=== PATIENT | male | born 1960 | race African-American/Black ===

== ENCOUNTER 2016-12-28 14:58 | Inpatient (IN) | payer OTHER ==
[2016-12-28 16:28] VITALS: BMI 22.8
--- NOTE | 2016-12-28 19:16 | HP ---
COWS - Scale Resting Pulse: 1= [place] 81-100 Sweatin= Chills/Flushing Restless Observation: 1= Difficult to Sit Still Pupil Size: 1= Pupils >than Normal Bone or Joint Aches: 1= Mild Discomfort Runny Nose/ Eye Tearin= Runny Nose/Eyes GI Upset > 30mins: 2= Nausea/Diarrhea Tremor Observation: 2= Slight Tremor Visible Yawning Observation: 1= 1-2x During Session Anxiety or Irritability: 2=Irritable/Anxious Goose Flesh Skin: 3=Piloerection COWS Score: 17 Admission ROS S - [facility] Chief Complaint: withdrawal sx Allergies/Adverse Reactions: Allergies Allergy/AdvReac Type Severity Reaction Status Date / Time No Known Allergies Allergy Verified 12/28/16 17:33 History of Present Illness: 55 years old male with long history of opiate nicotine dependence has gerd and weight loss denies mental illness is admitted to detox Exam Limitations: No Limitations - Ebola screening Have you traveled outside of the country in the last 21 days: No Have you had contact with anyone from an Ebola affected area: No Have you been sick,other than usual withdrawal symptoms: No Do you have a fever: No - Review of Systems Constitutional: Chills, Loss of Appetite, Changes in sleep, Unintentional Wgt. Loss, Unexplained wgt Loss EENT: reports: Other (right eye herpes inflammation treated at [facility] x 7 days) Respiratory: reports: No Symptoms reported Cardiac: reports: No Symptoms Reported GI: reports: Nausea, Poor Appetite, Poor Fluid Intake, Indigestion, Abdominal cramping : reports: No Symptoms Reported Musculoskeletal: reports: Muscle Pain (right upper eye lid) Integumentary: reports: Erythema (right upper eye lid) Neuro: reports: Tremors Endocrine: reports: No Symptoms Reported Hematology: reports: No Symptoms Reported Psychiatric: reports: Judgement Intact, Mood/Affect Appropiate, Orientated x3 Other Systems: Reviewed and Negative Patient History - Patient Medical History Hx Anemia: No Hx Asthma: No Hx Chronic Obstructive Pulmonary Disease (COPD): No Hx Cancer: No Hx Cardiac Disorders: No Hx Congestive Heart Failure: No Hx Hypertension: No Hx Hypercholesterolemia: No Hx Pacemaker: No HX Cerebrovascular Accident: No Hx Seizures: No Hx Dementia: No Hx Diabetes: No Hx Gastrointestinal Disorders: No Hx Liver Disease: No Hx Genitourinary Disorders: No Hx Sexually Transmitted Disorders: No Hx Renal Disease (ESRD): No Hx Thyroid Disease: No Hx Human Immunodeficiency Virus (HIV): No Hx Hepatitis C: No Hx Depression: No Hx Suicide Attempt: No Hx Bipolar Disorder: No Hx Schizophrenia: No - Patient Surgical History Past Surgical History: No Hx Neurologic Surgery: No Hx Cataract Extraction: No Hx Cardiac Surgery: No Hx Lung Surgery: No Hx Breast Surgery: No Hx Breast Biopsy: No Hx Abdominal Surgery: No Hx Appendectomy: No Hx Cholecystectomy: No Hx Genitourinary Surgery: No Hx Orthopedic Surgery: No Anesthesia Reaction: No - PPD History Previous Implant?: Yes Documented Results: Negative w/o proof Implanted On Prior [facility] Admission?: No PPD to be Administered?: Yes - Smoking Cessation Smoking history: Current every day smoker Have you smoked in the past 12 months: Yes Aproximately how many cigarettes per day: 3 Cigars Per Day: 0 Hx Chewing Tobacco Use: No Initiated information on smoking cessation: Yes 'Breaking Loose' booklet given: 12/21/16 - Substance & Tx. History Hx Alcohol Use: No Hx Substance Use: Yes Substance Use Type: Opiates Hx Substance Use Treatment: Yes - Substances Abused Heroin Route: Inhalation Frequency: Daily Amount used: 6 BAGS Age of first use: 33 Date of Last Use: 12/27/16 Family Disease History - Family Disease History Family Disease History: Diabetes: Mother, Other: Father (no contact), Sister ( no contact) Admission Physical Exam BHS - Vital Signs Vital Signs: Vital Signs - 24 hr 12/28/16 16:26 Temperature 96.1 F L Pulse Rate 91 H Respiratory 20 Rate Blood Pressure 131/65 - Physical General Appearance: Yes: Appropriately Dressed, Moderate Distress, Thin, Tremorous, Irritable, Sweating, Anxious HEENTM: Yes: Hearing grossly Normal, Normal ENT Inspection, Normocephalic, Normal Voice Respiratory: Yes: Chest Non-Tender, Lungs Clear, Normal Breath Sounds, No Respiratory Distress, No Accessory Muscle Use Neck: Yes: Supple, Trachea in good position Breast: Yes: Breasts Symetrical Cardiology: Yes: Regular Rhythm, Regular Rate, S1, S2 Abdominal: Yes: Non Tender, Soft Genitourinary: Yes: Within Normal Limits Back: Yes: Normal Inspection Musculoskeletal: Yes: full range of Motion, Gait Steady, Back pain, Muscle Pain Extremities: Yes: Normal Inspection (refuses legs + arms been examine), Normal Range of Motion, Non-Tender, Tremors Neurological: Yes: Fully Oriented, Alert, Motor Strength 5/5, Normal Mood/Affect , Normal Response Integumentary: Yes: Warm Lymphatic: Yes: Within Normal Limits - Diagnostic (1) Opioid dependence with withdrawal Current Visit: Yes Status: Acute (2) GERD (gastroesophageal reflux disease) Current Visit: Yes Status: Acute Qualifiers: Esophagitis presence: without esophagitis Qualified Code(s): K21.9 - Gastro-esophageal reflux disease without esophagitis (3) Weight loss Current Visit: Yes Status: Acute (4) Nicotine dependence Current Visit: Yes Status: Acute Qualifiers: Nicotine product type: cigarettes Substance use status: in withdrawal Qualified Code(s): F17.213 - Nicotine dependence, cigarettes, with withdrawal (5) Herpes simplex conjunctivitis, right eye Current Visit: Yes Status: Acute Comment: right eye herpes treated at [facility] x 7 days, discharged 12/22/16, [facility] Level of Care: Medically Managed Detox Regimen/Protocol: Methadone [facility] Breath Alcohol Content Breath Alcohol Content: 0 Urine Drug Screen - Results Drug Screen Negative: No Urine Drug Screen Results: THC-Marijuana, CARMELINA-Cocaine, OPI-Opiates, MTD- Methadone, OXY-Oxycodone
[2016-12-28] MEDS ORDERED: IBUPROFEN 400 MG TABLET (FP) PO PRN (19:24)
[2016-12-28] MEDS ORDERED: guaiFENesin/D-METHORPHAN HB 10 ML UNIT-DOSE CUPS PO PRN (19:24)
[2016-12-28] MEDS ORDERED: MENTHOL/PHENOL 1 EACH UD MM PRN (19:24)
[2016-12-28] MEDS ORDERED: ACETAMINOPHEN 325 MG TABLET (FP) PO PRN (19:24)
[2016-12-28] MEDS ORDERED: MAGNESIUM CITRATE 300 ML BOTTLE PO PRN (19:24)
[2016-12-28] MEDS ORDERED: LOPERAMIDE HCL 2 MG CAPSULE PO PRN (19:24)
[2016-12-28] MEDS ORDERED: METHADONE HCL 10 MG TABLET (FOR DETOX USE ONLY) PO ONE ×2 (19:24→23:00)
[2016-12-28] MEDS ORDERED: NICOTINE POLACRILEX 2 MG GUM BC PRN (19:24)
[2016-12-28] MEDS ORDERED: MAGNESIUM HYDROX 2400MG/30ML ORAL SUSPENSION 30 ML CUP PO PRN (19:24)
[2016-12-28] MEDS ORDERED: MAG HYDROX/AL HYDROX/SIMETH 30 ML UNIT-DOSE CUP PO PRN (19:24)
[2016-12-28] MEDS ORDERED: P-EPHED 60MG/TRIPROLIDI 2.5MG TABLET PO PRN (19:24)
[2016-12-28] MEDS ORDERED: ERYTHROMYCIN 0.5% OPHTHALMIC OINTMENT 3.5 GM TUBE OD SCH ×2 (19:30→19:33)
[2016-12-28] MEDS ORDERED: valACYclovir HCL 1000 MG TABLET PO SCH (19:30)
[2016-12-28] MEDS: ERYTHROMYCIN 0.5% OD SCH ×2 (21:56→22:51)
[2016-12-28] MEDS: OPTH OD SCH ×2 (21:56→22:51)
[2016-12-28] MEDS ORDERED: ARTIFICIAL TEARS (POLYVINYL ALCOHOL 1.4%) OPTH DROPS OU SCH ×2 (22:00)
[2016-12-28] MEDS ORDERED: valACYclovir HCL 500 MG TABLET (FP) PO SCH (22:00)
[2016-12-28 22:38] LABS: URINE APPEARANCE CLEAR; URINE BILIRUBIN NEGATIVE (NEGATIVE); URINE BLOOD NEGATIVE (NEGATIVE); URINE COLOR YELLOW; URINE GLUCOSE (UA) NEGATIVE (NEGATIVE); URINE KETONE NEGATIVE (NEGATIVE); URINE LEUK ESTERASE NEGATIVE (NEGATIVE); URINE NITRITE NEGATIVE (NEGATIVE); URINE PROTEIN NEGATIVE (NEGATIVE); URINE UROBILINOGEN NEGATIVE E.U./dl (0.2-1.0)
[2016-12-28] MEDS: VALTREX 1000 MG PO SCH (22:49)
[2016-12-28] MEDS: [UNRECOGNIZED DRUG - OTHER] OU SCH (22:49)
[2016-12-28] MEDS: THIAMINE HCL 100 MG TABLET (FP) PO SCH (22:50)
[2016-12-28] MEDS: RANITIDINE HCL 150 MG TABLET (FP) PO SCH (22:50)
[2016-12-28] MEDS: diphenhydrAMINE HCL 50 MG CAPSULE PO PRN (22:51)
[2016-12-29] MEDS: OPTH OD SCH ×6 (04:16→23:10)
[2016-12-29] MEDS: ERYTHROMYCIN 0.5% OD SCH ×6 (04:16→23:10)
[2016-12-29] MEDS: diazePAM 5 MG TABLET PO PRN ×2 (05:50→10:42)
[2016-12-29] MEDS: VALTREX 1000 MG PO SCH ×3 (05:51→23:09)
[2016-12-29] MEDS: [UNRECOGNIZED DRUG - OTHER] OU SCH ×3 (05:51→23:00)
[2016-12-29] MEDS ORDERED: METHADONE HCL 10 MG TABLET (FOR DETOX USE ONLY) PO ONE (10:00)
[2016-12-29] MEDS ORDERED: DOXYCYCLINE HYCLATE 100 MG CAPSULE PO SCH (10:00)
[2016-12-29 10:29] LABS: MCH 31.6 pg (25.7-33.7); MCHC 33.5 g/dl (32.0-35.9); MEAN CELL VOLUME 94.3 fl (80-96); MEAN PLT VOLUME 6.8 fl (7.5-11.1); PLATELET COUNT 397 K/MM3 (134-434); WHITE BLOOD COUNT 9.5 K/mm3 (4.0-10.0)
[2016-12-29] MEDS: RANITIDINE HCL 150 MG TABLET (FP) PO SCH ×2 (10:41→23:00)
[2016-12-29] MEDS: PRENATAL VITAMINS W/ FOLIC ACID TABLET (FP) PO SCH (10:42)
[2016-12-29] MEDS: DOXYCYCLINE 100 MG PO SCH ×2 (10:43→17:35)
[2016-12-29] MEDS: NICOTINE 14 MG/24 HOURS TOPICAL PATCH TD SCH (10:43)
[2016-12-29 11:00] LABS: ALBUMIN 3.1 g/dl (3.4-5.0); ALK PHOS 54 U/L (45-117); ANION GAP 9 (8-16); BILIRUBIN,TOTAL 0.3 mg/dL (0.2-1.0); CALCIUM 8.1 mg/dL (8.5-10.1); CO2 28 mmol/L (21-32); GLUCOSE,RANDOM 111 mg/dL (74-106); SGOT/AST 17 U/L (15-37); SGPT/ALT 27 U/L (12-78); TOT PROT 6.9 g/dl (6.4-8.2)
--- NOTE | 2016-12-29 13:23 | EKG ---
Test Reason : Blood Pressure : / mmHG Vent. Rate : 071 BPM Atrial Rate : 071 BPM P-R Int : 156 ms QRS Dur : 094 ms QT Int : 406 ms P-R-T Axes : 061 -29 -04 degrees QTc Int : 441 ms NORMAL SINUS RHYTHM INCOMPLETE RIGHT BUNDLE BRANCH BLOCK SEPTAL INFARCT , AGE UNDETERMINED ABNORMAL ECG NO PREVIOUS ECGS AVAILABLE Confirmed by CHRISTIE MENDEZ MD ([id number]) on 12/29/2016 1:23:14 PM Referred By: Noah Blas Confirmed By:CHRISTIE MENDEZ MD
--- NOTE | 2016-12-29 15:18 | PN ---
S COWS - Scale Resting Pulse: 1= [place] 81-100 Sweatin= Chills/Flushing Restless Observation: 1= Difficult to Sit Still Pupil Size: 0= Normal to Room Light Bone or Joint Aches: 2= Severe Diffuse Aches Runny Nose/ Eye Tearin= Nasal Congestion GI Upset > 30mins: 0= None Tremor Observation of Outstretched Hands: 2= Slight Tremor Visible Yawning Observation: 1= 1-2x During Session Anxiety or Irritability: 2=Irritable/Anxious Goose Flesh Skin: 3=Piloerection COWS Score: 14 BHS Progress Note (SOAP) Subjective: Tremors, Chills, Sweating, Body Aches. Objective: PT. A & O X 3, OBSERVED AMBULATING ON UNIT. 12/29/16 15:16 Vital Signs Temperature 97 F L 12/29/16 14:28 Pulse Rate 85 12/29/16 14:28 Respiratory Rate 20 12/29/16 14:28 Blood Pressure 105/69 12/29/16 14:28 O2 Sat by Pulse Oximetry (%) Laboratory Last Values WBC 9.5 K/mm3 (4.0-10.0) 12/29/16 07:15 RBC 3.74 M/mm3 (4.00-5.60) L 12/29/16 07:15 Hgb 11.8 GM/dL (11.7-16.9) 12/29/16 07:15 Hct 35.3 % (35.4-49) L 12/29/16 07:15 MCV 94.3 fl (80-96) 12/29/16 07:15 MCHC 33.5 g/dl (32.0-35.9) 12/29/16 07:15 RDW 13.0 % (11.9-15.9) 12/29/16 07:15 Plt Count 397 K/MM3 (134-434) 12/29/16 07:15 MPV 6.8 fl (7.5-11.1) L 12/29/16 07:15 Sodium 142 mmol/L (136-145) 12/29/16 07:15 Potassium 4.0 mmol/L (3.5-5.1) 12/29/16 07:15 Chloride 105 mmol/L (98-107) 12/29/16 07:15 Carbon Dioxide 28 mmol/L (21-32) 12/29/16 07:15 Anion Gap 9 (8-16) 12/29/16 07:15 BUN 10 mg/dL (7-18) 12/29/16 07:15 Creatinine 1.0 mg/dL (0.7-1.3) 12/29/16 07:15 Creat Clearance w eGFR > 60 (>60) 12/29/16 07:15 Random Glucose 111 mg/dL (74-106) H 12/29/16 07:15 Calcium 8.1 mg/dL (8.5-10.1) L 12/29/16 07:15 Total Bilirubin 0.3 mg/dL (0.2-1.0) 12/29/16 07:15 AST 17 U/L (15-37) 12/29/16 07:15 ALT 27 U/L (12-78) 12/29/16 07:15 Alkaline Phosphatase 54 U/L (45-117) 12/29/16 07:15 Total Protein 6.9 g/dl (6.4-8.2) 12/29/16 07:15 Albumin 3.1 g/dl (3.4-5.0) L 12/29/16 07:15 Urine Color Yellow 12/28/16 22:00 Urine Appearance Clear 12/28/16 22:00 Urine pH 5.0 (5.0-8.0) 12/28/16 22:00 Ur Specific [place] 1.018 (1.001-1.035) 12/28/16 22:00 Urine Protein Negative (NEGATIVE) 12/28/16 22:00 Urine Glucose (UA) Negative (NEGATIVE) 12/28/16 22:00 Urine Ketones Negative (NEGATIVE) 12/28/16 22:00 Urine Blood Negative (NEGATIVE) 12/28/16 22:00 Urine Nitrite Negative (NEGATIVE) 12/28/16 22:00 Urine Bilirubin Negative (NEGATIVE) 12/28/16 22:00 Urine Urobilinogen Negative E.U./dl (0.2-1.0) 12/28/16 22:00 Ur Leukocyte Esterase Negative (NEGATIVE) 12/28/16 22:00 RPR Titer Nonreactive (NONREACTIVE) 12/29/16 07:15 LABS NOTED. 12/29/16 15:18 Assessment: 12/29/16 15:17 WITHDRAWAL SYMPTOMS. Plan: CONTINUE DETOX.
--- NOTE | 2016-12-29 17:45 | CONSULT ---
[facility] Psychiatric Consult - Data Date of interview: 12/29/16 Admission source: [facility] Identifying data: First aadmission to [facility] for this 55 y/o AA male seeking detox treatment on for heroin,cocaine (crack) and marijuana dependence.Patient is single,a father of six,domiciled,disabled and supported on SSI benefits. Substance Abuse History: - Smoking Cessation. Smoking history: Current every day smoker. Have you smoked in the past 12 months: Yes. Aproximately how many cigarettes per day: 3. Cigars Per Day: 0. Hx Chewing Tobacco Use: No. Initiated information on smoking cessation: Yes. 'Breaking Loose' booklet given : 12/21/16. - Substance & Tx. History. Hx Alcohol Use: No. Hx Substance Use: Yes. Substance Use Type: Opiates. Hx Substance Use Treatment: Yes. - Substances Abused. Heroin. Route: Inhalation. Frequency: Daily. Amount used: 6 BAGS. Age of first use: 33. Date of Last Use: 12/27/16. Confirmed by the patient in this interview. Medical History: Decreased hearing (bilateral),GERD and recent treatment for ophtalmic herpes. Psychiatric History: No reported history of psychiatric hospitalizations.Patient reports brief contact with a private psychiatrist to address anxiety.he was prescribed seroquel,xanax and klonopin.No longer in treatment.Mr Peralta reports that he stopped seeing the psychiatrist four months ago.Off medications since (own decision).Patient indicates that he is not interested in taking " psychiatric " medications.No history of suicide attempts. Physical/Sexual Abuse/Trauma History: Patient denies. Additional Comment: Urine Drug Screen Results: THC-Marijuana, CARMELINA-Cocaine, OPI- Opiates, MTD-Methadone, OXY-Oxycodone.Noted. Mental Status Exam - Mental Status Exam Alert and Oriented to: Time, Place, Person Cognitive Function: Good Patient Appearance: Well Groomed Mood: Hopeful, Euthymic Affect: Appropriate, Normal Range Patient Behavior: Fatigued, Appropriate, Cooperative Speech Pattern: Clear Voice Loudness: Normal Thought Process: Goal Oriented Hallucinations: Denies Suicidal Ideation: Denies Homicidal Ideation: Denies Insight/Judgement: Poor Sleep: Well Appetite: Good Muscle strength/Tone: Normal Gait/Station: Normal Psychiatric Findings - Problem List ([place] 1, 2,3) (1) Nicotine dependence Current Visit: Yes Status: Acute Qualifiers: Nicotine product type: cigarettes Substance use status: in withdrawal Qualified Code(s): F17.213 - Nicotine dependence, cigarettes, with withdrawal (2) Opioid dependence with withdrawal Current Visit: Yes Status: Acute (3) Cocaine dependence Current Visit: Yes Status: Acute (4) Marijuana dependence Current Visit: Yes Status: Acute (5) GERD (gastroesophageal reflux disease) Current Visit: Yes Status: Chronic Qualifiers: Esophagitis presence: without esophagitis Qualified Code(s): K21.9 - Gastro-esophageal reflux disease without esophagitis (6) Herpes simplex conjunctivitis, right eye Current Visit: Yes Status: Acute Comment: right eye herpes treated at [facility] x 7 days, discharged 12/22/16, - Initial Treatment Plan Initial Treatment Plan: Psychoeducation.Detoxification.Observation.
[2016-12-29] MEDS: THIAMINE HCL 100 MG TABLET (FP) PO SCH (23:00)
[2016-12-29] MEDS: diphenhydrAMINE HCL 50 MG CAPSULE PO PRN (23:11)
[2016-12-30] MEDS: ERYTHROMYCIN 0.5% OD SCH ×6 (03:30→22:53)
[2016-12-30] MEDS: OPTH OD SCH ×6 (03:30→22:53)
[2016-12-30] MEDS: VALTREX 1000 MG PO SCH ×3 (05:56→22:36)
[2016-12-30] MEDS: [UNRECOGNIZED DRUG - OTHER] OU SCH ×3 (05:57→22:39)
[2016-12-30] MEDS: diazePAM 5 MG TABLET PO PRN ×2 (05:57→22:34)
[2016-12-30] MEDS ORDERED: METHADONE HCL 5 MG TABLET (FOR DETOX USE ONLY) PO ONE (10:00)
[2016-12-30] MEDS: PRENATAL VITAMINS W/ FOLIC ACID TABLET (FP) PO SCH (11:08)
[2016-12-30] MEDS: DOXYCYCLINE 100 MG PO SCH ×2 (11:09→17:30)
[2016-12-30] MEDS: NICOTINE 14 MG/24 HOURS TOPICAL PATCH TD SCH (11:10)
[2016-12-30] MEDS: RANITIDINE HCL 150 MG TABLET (FP) PO SCH ×2 (11:12→22:35)
--- NOTE | 2016-12-30 13:13 | PN ---
BHS COWS - Scale Resting Pulse: 1= [place] 81-100 Sweatin=Flushed/Facial Moisture Restless Observation: 1= Difficult to Sit Still Pupil Size: 0= Normal to Room Light Bone or Joint Aches: 2= Severe Diffuse Aches Runny Nose/ Eye Tearin= Runny Nose/Eyes GI Upset > 30mins: 2= Nausea/Diarrhea Tremor Observation of Outstretched Hands: 2= Slight Tremor Visible Yawning Observation: 1= 1-2x During Session Anxiety or Irritability: 2=Irritable/Anxious Goose Flesh Skin: 0=Smooth Skin COWS Score: 15 BHS Progress Note (SOAP) Subjective: Anxiety,sweating,muscle aches/spasm,interrupted sleep,restless Objective: 12/30/16 13:12 Vital Signs - 8 hr 12/30/16 12/30/16 06:24 11:47 Temperature 96 F L 97.7 F Pulse Rate 74 98 H Respiratory 16 19 Rate Blood Pressure 109/68 120/73 Laboratory Last Values WBC 9.5 K/mm3 (4.0-10.0) 12/29/16 07:15 RBC 3.74 M/mm3 (4.00-5.60) L 12/29/16 07:15 Hgb 11.8 GM/dL (11.7-16.9) 12/29/16 07:15 Hct 35.3 % (35.4-49) L 12/29/16 07:15 MCV 94.3 fl (80-96) 12/29/16 07:15 MCHC 33.5 g/dl (32.0-35.9) 12/29/16 07:15 RDW 13.0 % (11.9-15.9) 12/29/16 07:15 Plt Count 397 K/MM3 (134-434) 12/29/16 07:15 MPV 6.8 fl (7.5-11.1) L 12/29/16 07:15 Sodium 142 mmol/L (136-145) 12/29/16 07:15 Potassium 4.0 mmol/L (3.5-5.1) 12/29/16 07:15 Chloride 105 mmol/L (98-107) 12/29/16 07:15 Carbon Dioxide 28 mmol/L (21-32) 12/29/16 07:15 Anion Gap 9 (8-16) 12/29/16 07:15 BUN 10 mg/dL (7-18) 12/29/16 07:15 Creatinine 1.0 mg/dL (0.7-1.3) 12/29/16 07:15 Creat Clearance w eGFR > 60 (>60) 12/29/16 07:15 Random Glucose 111 mg/dL (74-106) H 12/29/16 07:15 Calcium 8.1 mg/dL (8.5-10.1) L 12/29/16 07:15 Total Bilirubin 0.3 mg/dL (0.2-1.0) 12/29/16 07:15 AST 17 U/L (15-37) 12/29/16 07:15 ALT 27 U/L (12-78) 12/29/16 07:15 Alkaline Phosphatase 54 U/L (45-117) 12/29/16 07:15 Total Protein 6.9 g/dl (6.4-8.2) 12/29/16 07:15 Albumin 3.1 g/dl (3.4-5.0) L 12/29/16 07:15 Urine Color Yellow 12/28/16 22:00 Urine Appearance Clear 12/28/16 22:00 Urine pH 5.0 (5.0-8.0) 12/28/16 22:00 Ur Specific [place] 1.018 (1.001-1.035) 12/28/16 22:00 Urine Protein Negative (NEGATIVE) 12/28/16 22:00 Urine Glucose (UA) Negative (NEGATIVE) 12/28/16 22:00 Urine Ketones Negative (NEGATIVE) 12/28/16 22:00 Urine Blood Negative (NEGATIVE) 12/28/16 22:00 Urine Nitrite Negative (NEGATIVE) 12/28/16 22:00 Urine Bilirubin Negative (NEGATIVE) 12/28/16 22:00 Urine Urobilinogen Negative E.U./dl (0.2-1.0) 12/28/16 22:00 Ur Leukocyte Esterase Negative (NEGATIVE) 12/28/16 22:00 RPR Titer Nonreactive (NONREACTIVE) 12/29/16 07:15 labs noted Assessment: 12/30/16 13:12 withdrawal sx. Plan: continue detox
[2016-12-30] MEDS: THIAMINE HCL 100 MG TABLET (FP) PO SCH (22:34)
[2016-12-30] MEDS: diphenhydrAMINE HCL 50 MG CAPSULE PO PRN (22:37)
[2016-12-31] MEDS: OPTH OD SCH ×6 (03:30→22:43)
[2016-12-31] MEDS: ERYTHROMYCIN 0.5% OD SCH ×6 (03:30→22:43)
[2016-12-31] MEDS: VALTREX 1000 MG PO SCH ×3 (06:13→22:25)
[2016-12-31] MEDS: [UNRECOGNIZED DRUG - OTHER] OU SCH ×3 (06:13→22:25)
[2016-12-31] MEDS: diazePAM 5 MG TABLET PO PRN ×3 (06:14→17:51)
[2016-12-31] MEDS ORDERED: METHADONE HCL 5 MG TABLET (FOR DETOX USE ONLY) PO ONE (10:00)
[2016-12-31] MEDS: RANITIDINE HCL 150 MG TABLET (FP) PO SCH ×2 (10:47→22:25)
[2016-12-31] MEDS: PRENATAL VITAMINS W/ FOLIC ACID TABLET (FP) PO SCH (10:48)
[2016-12-31] MEDS: DOXYCYCLINE 100 MG PO SCH ×2 (10:48→17:50)
[2016-12-31] MEDS: NICOTINE 14 MG/24 HOURS TOPICAL PATCH TD SCH (11:18)
--- NOTE | 2016-12-31 14:53 | PN ---
BHS Progress Note (SOAP) Subjective: Fatigue, H/A, Chills, Sweating, Tremors. Objective: PT. A & O X 1, (DISORIENTED ABOUT DAY / DATE AND ABOUT LOCATION). 12/31/16 14:51 Vital Signs Temperature 97.3 F L 12/31/16 12:53 Pulse Rate 95 H 12/31/16 12:53 Respiratory Rate 18 12/31/16 12:53 Blood Pressure 108/68 12/31/16 12:53 O2 Sat by Pulse Oximetry (%) Laboratory Last Values WBC 9.5 K/mm3 (4.0-10.0) 12/29/16 07:15 RBC 3.74 M/mm3 (4.00-5.60) L 12/29/16 07:15 Hgb 11.8 GM/dL (11.7-16.9) 12/29/16 07:15 Hct 35.3 % (35.4-49) L 12/29/16 07:15 MCV 94.3 fl (80-96) 12/29/16 07:15 MCHC 33.5 g/dl (32.0-35.9) 12/29/16 07:15 RDW 13.0 % (11.9-15.9) 12/29/16 07:15 Plt Count 397 K/MM3 (134-434) 12/29/16 07:15 MPV 6.8 fl (7.5-11.1) L 12/29/16 07:15 Sodium 142 mmol/L (136-145) 12/29/16 07:15 Potassium 4.0 mmol/L (3.5-5.1) 12/29/16 07:15 Chloride 105 mmol/L (98-107) 12/29/16 07:15 Carbon Dioxide 28 mmol/L (21-32) 12/29/16 07:15 Anion Gap 9 (8-16) 12/29/16 07:15 BUN 10 mg/dL (7-18) 12/29/16 07:15 Creatinine 1.0 mg/dL (0.7-1.3) 12/29/16 07:15 Creat Clearance w eGFR > 60 (>60) 12/29/16 07:15 Random Glucose 111 mg/dL (74-106) H 12/29/16 07:15 Calcium 8.1 mg/dL (8.5-10.1) L 12/29/16 07:15 Total Bilirubin 0.3 mg/dL (0.2-1.0) 12/29/16 07:15 AST 17 U/L (15-37) 12/29/16 07:15 ALT 27 U/L (12-78) 12/29/16 07:15 Alkaline Phosphatase 54 U/L (45-117) 12/29/16 07:15 Total Protein 6.9 g/dl (6.4-8.2) 12/29/16 07:15 Albumin 3.1 g/dl (3.4-5.0) L 12/29/16 07:15 Urine Color Yellow 12/28/16 22:00 Urine Appearance Clear 12/28/16 22:00 Urine pH 5.0 (5.0-8.0) 12/28/16 22:00 Ur Specific [place] 1.018 (1.001-1.035) 12/28/16 22:00 Urine Protein Negative (NEGATIVE) 12/28/16 22:00 Urine Glucose (UA) Negative (NEGATIVE) 12/28/16 22:00 Urine Ketones Negative (NEGATIVE) 12/28/16 22:00 Urine Blood Negative (NEGATIVE) 12/28/16 22:00 Urine Nitrite Negative (NEGATIVE) 12/28/16 22:00 Urine Bilirubin Negative (NEGATIVE) 12/28/16 22:00 Urine Urobilinogen Negative E.U./dl (0.2-1.0) 12/28/16 22:00 Ur Leukocyte Esterase Negative (NEGATIVE) 12/28/16 22:00 RPR Titer Nonreactive (NONREACTIVE) 12/29/16 07:15 LABS NOTED. Assessment: 12/31/16 14:52 WITHDRAWAL SYMPTOMS. Plan: CONTINUE DETOX.
[2016-12-31] MEDS: THIAMINE HCL 100 MG TABLET (FP) PO SCH (22:25)
[2017-01-01] MEDS: ERYTHROMYCIN 0.5% OD SCH ×5 (07:39→22:40)
[2017-01-01] MEDS: [UNRECOGNIZED DRUG - OTHER] OU SCH ×3 (07:39→22:09)
[2017-01-01] MEDS: VALTREX 1000 MG PO SCH ×3 (07:39→22:10)
[2017-01-01] MEDS: OPTH OD SCH ×5 (07:39→22:40)
[2017-01-01] MEDS ORDERED: METHADONE HCL 10 MG TABLET (FOR DETOX USE ONLY) PO ONE (10:00)
--- NOTE | 2017-01-01 10:47 | PN ---
BHS Progress Note (SOAP) Subjective: Sweating,interrupted sleep,restless Objective: 01/01/17 10:46 Vital Signs - 8 hr 01/01/17 01/01/17 03:30 06:36 Temperature 95.3 F L Pulse Rate 85 Respiratory 18 16 Rate Blood Pressure 111/71 Laboratory Tests 12/28/16 12/29/16 12/29/16 22:00 07:15 07:15 WBC 9.5 RBC 3.74 L Hgb 11.8 Hct 35.3 L MCV 94.3 MCHC 33.5 RDW 13.0 Plt Count 397 MPV 6.8 L Sodium 142 Potassium 4.0 Chloride 105 Carbon Dioxide 28 Anion Gap 9 BUN 10 Creatinine 1.0 Creat Clearance w eGFR > 60 Random Glucose 111 H Calcium 8.1 L Total Bilirubin 0.3 AST 17 ALT 27 Alkaline Phosphatase 54 Total Protein 6.9 Albumin 3.1 L Urine Color Yellow Urine Appearance Clear Urine pH 5.0 Ur Specific [place] 1.018 Urine Protein Negative Urine Glucose (UA) Negative Urine Ketones Negative Urine Blood Negative Urine Nitrite Negative Urine Bilirubin Negative Urine Urobilinogen Negative Ur Leukocyte Esterase Negative RPR Titer 12/29/16 07:15 WBC RBC Hgb Hct MCV MCHC RDW Plt Count MPV Sodium Potassium Chloride Carbon Dioxide Anion Gap BUN Creatinine Creat Clearance w eGFR Random Glucose Calcium Total Bilirubin AST ALT Alkaline Phosphatase Total Protein Albumin Urine Color Urine Appearance Urine pH Ur Specific [place] Urine Protein Urine Glucose (UA) Urine Ketones Urine Blood Urine Nitrite Urine Bilirubin Urine Urobilinogen Ur Leukocyte Esterase RPR Titer Nonreactive labs noted Assessment: 01/01/17 10:47 withdrawal sx. Plan: continue detox
[2017-01-01] MEDS: RANITIDINE HCL 150 MG TABLET (FP) PO SCH ×2 (10:53→22:10)
[2017-01-01] MEDS: NICOTINE 14 MG/24 HOURS TOPICAL PATCH TD SCH (10:53)
[2017-01-01] MEDS: DOXYCYCLINE 100 MG PO SCH ×2 (10:53→17:15)
[2017-01-01] MEDS: PRENATAL VITAMINS W/ FOLIC ACID TABLET (FP) PO SCH (10:54)
[2017-01-01] MEDS ORDERED: ERYTHROMYCIN 0.5% OPHTHALMIC OINTMENT 3.5 GM TUBE OS SCH (22:00)
[2017-01-01] MEDS: THIAMINE HCL 100 MG TABLET (FP) PO SCH (22:10)
[2017-01-01] MEDS: diphenhydrAMINE HCL 50 MG CAPSULE PO PRN (22:11)
[2017-01-02] MEDS: OPTH OD SCH ×2 (05:00→07:50)
[2017-01-02] MEDS: ERYTHROMYCIN 0.5% OD SCH ×2 (05:00→07:50)
[2017-01-02] MEDS ORDERED: METHADONE HCL 5 MG TABLET (FOR DETOX USE ONLY) PO ONE (06:00)
[2017-01-02] MEDS: [UNRECOGNIZED DRUG - OTHER] OU SCH (06:09)
[2017-01-02 06:31] VITALS: BP 106/69; PULSE 86; TEMP 96.5
[2017-01-02] MEDS: VALTREX 1000 MG PO SCH (06:59)
--- NOTE | 2017-01-02 18:22 | DS ---
[facility] Detox Discharge Summary Admission Date: 12/28/16 Discharge Date: 01/02/17 - History Present History: Cannabis Dependence, Cocaine Dependence, Opioid Dependence Pertinent Past History: HSV conjunctivitis GERD - Physical Exam Results Vital Signs: Vital Signs Temperature 96.5 F L 01/02/17 06:31 Pulse Rate 86 01/02/17 06:31 Respiratory Rate 16 01/02/17 06:31 Blood Pressure 106/69 01/02/17 06:31 O2 Sat by Pulse Oximetry (%) Pertinent Admission Physical Exam Findings: Withdrawal sx. Laboratory Tests 12/28/16 12/29/16 12/29/16 22:00 07:15 07:15 WBC 9.5 RBC 3.74 L Hgb 11.8 Hct 35.3 L MCV 94.3 MCHC 33.5 RDW 13.0 Plt Count 397 MPV 6.8 L Sodium 142 Potassium 4.0 Chloride 105 Carbon Dioxide 28 Anion Gap 9 BUN 10 Creatinine 1.0 Creat Clearance w eGFR > 60 Random Glucose 111 H Calcium 8.1 L Total Bilirubin 0.3 AST 17 ALT 27 Alkaline Phosphatase 54 Total Protein 6.9 Albumin 3.1 L Urine Color Yellow Urine Appearance Clear Urine pH 5.0 Ur Specific [place] 1.018 Urine Protein Negative Urine Glucose (UA) Negative Urine Ketones Negative Urine Blood Negative Urine Nitrite Negative Urine Bilirubin Negative Urine Urobilinogen Negative Ur Leukocyte Esterase Negative RPR Titer 12/29/16 07:15 WBC RBC Hgb Hct MCV MCHC RDW Plt Count MPV Sodium Potassium Chloride Carbon Dioxide Anion Gap BUN Creatinine Creat Clearance w eGFR Random Glucose Calcium Total Bilirubin AST ALT Alkaline Phosphatase Total Protein Albumin Urine Color Urine Appearance Urine pH Ur Specific [place] Urine Protein Urine Glucose (UA) Urine Ketones Urine Blood Urine Nitrite Urine Bilirubin Urine Urobilinogen Ur Leukocyte Esterase RPR Titer Nonreactive labs noted - Treatment Hospital Course: Detox Protocol Followed, Detoxed Safely, Responded well, Discharged Condition Good, Rehab Referral Accepted - Medication Discharge Medications: Ambulatory Orders Doxycycline Hyclate [Vibramycin -] 100 mg PO DAILY 12/28/16 Erythromycin Base [Erythromycin] 3.5 gm OP BID 12/28/16 Polyvinyl Alcohol [Tears Again] 15 ml OP TID 12/28/16 Valacyclovir HCl [Valtrex -] 1,000 mg PO TID 12/28/16 - Diagnosis (1) Cocaine dependence Status: Acute Qualifiers: Substance use status: uncomplicated Qualified Code(s): F14.20 - Cocaine dependence, uncomplicated (2) Herpes simplex conjunctivitis, right eye Status: Acute (3) Marijuana dependence Status: Acute (4) Nicotine dependence Status: Acute Qualifiers: Nicotine product type: cigarettes Substance use status: in withdrawal Qualified Code(s): F17.213 - Nicotine dependence, cigarettes, with withdrawal (5) Opioid dependence with withdrawal Status: Acute (6) GERD (gastroesophageal reflux disease) Status: Chronic Qualifiers: Esophagitis presence: without esophagitis Qualified Code(s): K21.9 - Gastro-esophageal reflux disease without esophagitis - AMA Did Patient Leave Against Medical Advice: No
== END 2017-01-02 10:15 | disposition home or self-care (01) | DRG 773 ==
LOC: YASAS 14:58 → Y3N 18:30
PROVIDERS: ADMIT Internal Medicine; ATTEND Internal Medicine
PROC: HZ2ZZZZ Detoxification Services for Substance Abuse Treatment (ICD-10-PCS; principal; 2016-12-28)
DX: F11.23 Opioid dependence with withdrawal (principal); F14.20 Cocaine dependence, uncomplicated; F12.20 Cannabis dependence, uncomplicated; F17.210 Nicotine dependence, cigarettes, uncomplicated; K21.9 Gastro-esophageal reflux disease without esophagitis; B00.53 Herpesviral conjunctivitis; Z87.898 Personal history of other specified conditions
CPT/HCPCS: 36415; 80053; 81003; 85027; 86593; 93005; 93010